=== PATIENT | female | born 1965 | race Two or more races ===

== ENCOUNTER 2016-11-04 19:09 | Emergency (ER) | payer BC ==
[~2016-11-04] VITALS: Ht 149.9 cm; Wt 55.3 kg
[2016-11-04 19:15] VITALS: BP 129/79
--- NOTE | 2016-11-04 19:45 | NUR ---
DR KLINE AT BEDSIDE FOR EVAL.
--- NOTE | 2016-11-04 19:52 | NUR ---
PT TO RADIOLOGY FOR C SPINE CT SCAN VIA WHEELCHAIR.
[2016-11-04] MEDS ORDERED: IBUPROFEN 400 MG TABLET PO ONE (20:00)
[2016-11-04] MEDS ORDERED: IBUPROFEN 400 MG TABLET ONE (20:08)
== END 2016-11-04 21:08 | disposition home or self-care (01) ==
LOC: ER 19:12
DX: S16.1XXA Strain of muscle, fascia and tendon at neck level, initial encounter (principal); X58.XXXA Exposure to other specified factors, initial encounter; Y92.89 Other specified places as the place of occurrence of the external cause; Y93.89 Activity, other specified; Y99.8 Other external cause status
CPT/HCPCS: 72125; 99284; A4606; Z7610